=== PATIENT | male | born 1965 | race Hispanic/Latino ===

== ENCOUNTER → 2025-02-16 | Day surgery (SDC) | payer OTHER ==
[~2025-02-16] MED LIST: FENTANYL CITRATE/PF 100MCG/2 ML INJ ONE; FUROSEMIDE40 MG PO; KETAMINE HCL INJ 50 MG/ML 10 ML VIAL ONE; LIDOCAINE HCL 2% LOCAL INJ 5 ML SDV VIAL INJ ONE; LIPITOR10 MG PO; METFORMIN HCL500 M2 PO; OMEPRAZOLE40 MG PO; ONDANSETRON HCL INJ 2MG/ML 2ML 2 MG/ML VIAL ONE; PROPOFOL IV EMULSION 50 ML IV ONE; PROPRANOLOL HCL10 MG PO; VICTOZA 3-0.6 MG/0.1 SC; ZESTRIL10 MG PO
[2025-02-16] MEDS: LACTATED RINGER'S 1,000 ML ONE (06:06)
[2025-02-16 07:43] VITALS: TEMP 98.6
[2025-02-16 08:09] LABS: BASOPHILS % 0.6 % (0.0-1.0); EOSINOPHILS % 3.0 % (0.0-6.0); LYMPHOCYTES % 32.0 % (18.0-39.1); MONOCYTES % 11.8 % (4.4-11.3); NEUTROPHILS % 52.6 % (38.7-80.0); RED CELL DISTRIBUTION WIDTH 21.8 % (11.7-14.4)
[2025-02-16 08:15] VITALS: BP 126/79; PULSE 78; RESP 16; O2SAT 98
[2025-02-16 08:29] LABS: EST GLOMERULAR FILTRATION RATE 108.0 ML/MIN (>=60); INR 1.17
[2025-02-16 09:06] LABS: PLATELET ESTIMATE MARKEDLY DECREASED; PLATELET MORPHOLOGY COMMENT NORMAL; RBC MORPHOLOGY COMMENT ABNORMAL
== END | disposition home or self-care (01) ==
LOC: OR 05:17
PROVIDERS: ATTEND Internal Medicine Gastroenterology
DX: K29.70 Gastritis, unspecified, without bleeding (principal); I85.00 Esophageal varices without bleeding; K22.89 Other specified disease of esophagus; K44.9 Diaphragmatic hernia without obstruction or gangrene; K28.9 Gastrojejunal ulcer, unspecified as acute or chronic, without hemorrhage or perforation; K21.9 Gastro-esophageal reflux disease without esophagitis; K76.6 Portal hypertension; K31.89 Other diseases of stomach and duodenum; K76.0 Fatty (change of) liver, not elsewhere classified; D64.9 Anemia, unspecified; E11.9 Type 2 diabetes mellitus without complications; I10 Essential (primary) hypertension; Z71.89 Other specified counseling; E78.5 Hyperlipidemia, unspecified; Z01.810 Encounter for preprocedural cardiovascular examination; Z79.84 Long term (current) use of oral hypoglycemic drugs; Z79.899 Other long term (current) drug therapy; Z68.27 Body mass index [BMI] 27.0-27.9, adult; Z71.3 Dietary counseling and surveillance
CPT/HCPCS: 36415; 43239; 43244; 80053; 82948; 85025; 85610; 93005; J2003; J2405; J2470; J2704; J3010; J7121; 43255

== ENCOUNTER → 2025-02-23 | Outpatient (REF) | payer OTHER ==
[~2025-02-23] MED LIST changes: -FENTANYL CITRATE/PF 100MCG/2 ML INJ ONE; -KETAMINE HCL INJ 50 MG/ML 10 ML VIAL ONE; -LIDOCAINE HCL 2% LOCAL INJ 5 ML SDV VIAL INJ ONE; -ONDANSETRON HCL INJ 2MG/ML 2ML 2 MG/ML VIAL ONE; -PROPOFOL IV EMULSION 50 ML IV ONE
== END ==
LOC: US 10:09
PROVIDERS: ATTEND Nurse Practitioner
DX: R16.1 Splenomegaly, not elsewhere classified (principal); Z87.19 Personal history of other diseases of the digestive system
CPT/HCPCS: 76700